=== PATIENT | male | born 1940 | race Caucasian/White ===

== ENCOUNTER 2016-12-21 17:50 | Emergency (ER) | payer OTHER ==
[~2016-12-21] VITALS: Ht 177.8 cm; Wt 91.4 kg
[~2016-12-21 17:50] MED LIST: AMLODIPINE BESYL5 MG PO; CO Q-10200 MG PO; DAILY VITE1 EAC1 PO; ENDOCET 5-3251 EACH PO; FISH OIL 1,2001 EAC5 PO; MOVE FREE JOIN1 EACH PO; NORCO 5/3251 TABLET PO; PARAFON FORTE500 MG PO; SIMVASTATIN10 MG PO; VITAMIN D-3 401 EACH PO
[2016-12-21 20:11] VITALS: BP 159/100
== END 2016-12-21 20:11 | disposition home or self-care (01) ==
LOC: EME 17:50 → EXP 17:50
DX: T78.1XXA Other adverse food reactions, not elsewhere classified, initial encounter (principal); R20.8 Other disturbances of skin sensation; L25.4 Unspecified contact dermatitis due to food in contact with skin; X58.XXXA Exposure to other specified factors, initial encounter; E78.00 Pure hypercholesterolemia, unspecified; Z95.0 Presence of cardiac pacemaker
CPT/HCPCS: 99281; 99283